=== PATIENT | male | born 1935 | race Caucasian/White ===

== ENCOUNTER 2017-08-24 03:31 | Emergency (ER) | payer MEDICARE ==
[~2017-08-24] VITALS: Ht 180.3 cm; Wt 100.0 kg
[~2017-08-24 03:31] MED LIST: (None)3.5 GM OS; AMBIEN CR6.25 MG PO; ASPIRIN 81 LOW81 MG PO; BENADRYL 50MG C50 MG PO; CARVEDILOL3.125 MG PO; CRESTOR20 MG PO; FLEXERIL PO; GENTAMICIN15 ML/BTL OS; GLUCOTROL XL5 MG PO; LASIX 20 MG TAB20 MG PO; LORTAB 10-325 M1 TAB PO; MEDDOSEPAK PO; PEPCID20 MG PO; TRESIBA FL100 UNIT/M SC
[2017-08-24 03:57] LABS: HEMATOCRIT 42.4 % (39.0-50.0); HEMOGLOBIN 14.2 g/dl (14.0-18.0); IMMATURE GRANULOCYTES 0.2 % (0.0-1.0); MEAN CELL VOLUME 86.4 fL CALC (80.0-100.0); MEAN CORPUSCULAR HGB 28.9 pG CALC (26.0-32.0); MEAN CORPUSCULAR HGB CONC 33.5 g/L CALC (32.0-36.0); NEUT# 9.75 thou/uL (1.82-7.42); RED BLOOD COUNT 4.91 mill/uL (4.70-6.10); RED CELL DISTRI WIDTH 13.4 % (11.5-15.5)
[2017-08-24 04:10] LABS: ALBUMIN 3.9 g/dL (3.2-5.0); BILIRUBIN, TOTAL 1.2 mg/dL (0.0-1.4); CREATININE 1.9 mg/dL (0.7-1.3); POTASSIUM 4.1 mmol/l (3.5-5.1); TOTAL PROTEIN 8.4 g/dL (6.3-8.2)
[2017-08-24] MEDS ORDERED: VICTOZA18 MG/3 ML SC (04:55)
[2017-08-24] MEDS ORDERED: BEVESPI AEROSPH1 AER IN (04:57)
[2017-08-24] MEDS ORDERED: FUROSEMIDE20 MG PO (04:59)
[2017-08-24 06:00] VITALS: BP 99/75
[2017-08-24 06:11] LABS: URINE BILIRUBIN - DIPSTICK NEGATIVE (NEGATIVE); URINE BLOOD DIPSTICK MODERATE (NEGATIVE); URINE COLOR YELLOW; URINE GLUCOSE - DIPSTICK NEGATIVE (NEGATIVE); URINE KETONE NEGATIVE (NEGATIVE); URINE LEUK ESTERASE NEGATIVE (Negative); URINE NITRITE - DIPSTICK NEGATIVE (Negative); URINE PROTEIN - DIPSTICK TRACE mg/dL (NEG-TRACE); URINE SPECIFIC GRAVITY 1.025; URINE UROBILINOGEN - DIPSTICK 0.2 E.U./dL (0.2)
[2017-08-24 06:14] LABS: URINE CLARITY SL CLOUDY
[2017-08-24 06:16] LABS: URINE BACTERIA FEW hpf; URINE MUCUS MODERATE hpf (NONE-FEW); URINE SQUAMOUS EPITHELIAL CELL FEW EPI/hpf (0-FEW)
== END 2017-08-24 06:00 | disposition short-term general hospital (02) ==
LOC: ED 03:31
PROVIDERS: Emergency Medicine
DX: R07.9 Chest pain, unspecified (principal); R74.8 Abnormal levels of other serum enzymes; E11.9 Type 2 diabetes mellitus without complications; I10 Essential (primary) hypertension; E78.00 Pure hypercholesterolemia, unspecified; Z87.891 Personal history of nicotine dependence; R06.02 Shortness of breath

== ENCOUNTER → 2018-02-13 | Outpatient (REF) | payer MEDICARE ==
[~2018-02-13] MED LIST changes: +BACTRIM DS1 TAB PO; +BEVESPI AEROSPH1 AER IN; +CLOPIDOGREL75 MG PO; +DIGOXIN0.125 MG PO; +DITROPAN5 MG/TA1 PO; +FUROSEMIDE20 MG PO; +KEFLEX500 MG PO; +METO50TA52 PO; +METOPROLOL SUCC50 MG PO; +NOVOLOG FL100 UNIT/M PO; +PERCOCET 5/321 COMBO PO; +SPIRONOLACT25 MG PO; +TAMSULOSIN0.4 MG PO; +VICTOZA18 MG/3 ML SC
== END | disposition home or self-care (01) ==
LOC: ULTRASND 16:00
PROVIDERS: ATTEND Nurse Practitioner Family
DX: R60.0 Localized edema (principal)

== ENCOUNTER → 2018-02-17 | Outpatient (REF) | payer MEDICARE ==
[2018-02-17 15:01] LABS: URINE BILIRUBIN - DIPSTICK NEGATIVE (NEGATIVE); URINE BLOOD DIPSTICK LARGE (NEGATIVE); URINE COLOR YELLOW; URINE GLUCOSE - DIPSTICK NEGATIVE (NEGATIVE); URINE KETONE NEGATIVE (NEGATIVE); URINE LEUK ESTERASE TRACE (Negative); URINE NITRITE - DIPSTICK NEGATIVE (Negative); URINE PH 5.5 (4.5-8.0); URINE PROTEIN - DIPSTICK 30 mg/dL (NEG-TRACE); URINE SPECIFIC GRAVITY 1.025; URINE UROBILINOGEN - DIPSTICK 0.2 E.U./dL (0.2)
[2018-02-17 15:03] LABS: URINE CLARITY HAZY
== END | disposition home or self-care (01) ==
LOC: DI 14:15
PROVIDERS: ATTEND Nurse Practitioner
DX: N30.00 Acute cystitis without hematuria (principal); R05 Cough; R09.89 Other specified symptoms and signs involving the circulatory and respiratory systems

== ENCOUNTER 2018-06-05 08:08 | Emergency (ER) | payer MEDICARE ==
[~2018-06-05] VITALS: Ht 177.8 cm; Wt 90.0 kg
[~2018-06-05 08:08] MED LIST changes: +OMEPRAZOLE20 M2 PO
[2018-06-05 08:41] LABS: HEMOGLOBIN 12.1 g/dl (14.0-18.0); IMMATURE GRANULOCYTES 0.4 % (0.0-5.0); MEAN CORPUSCULAR HGB 21.7 pG CALC (26.0-32.0); MEAN CORPUSCULAR HGB CONC 28.9 g/L CALC (32.0-36.0); NEUT# 11.11 thou/uL (1.82-7.42); RED BLOOD COUNT 5.57 mill/uL (4.70-6.10); RED CELL DISTRI WIDTH 18.2 % (11.5-15.5)
[2018-06-05 08:47] LABS: HEMATOCRIT 41.8 % (39.0-50.0)
[2018-06-05 08:54] LABS: ALBUMIN 4.3 g/dL (3.2-5.0); BILIRUBIN, TOTAL 0.8 mg/dL (0.0-1.4); CREATININE 2.1 mg/dL (0.7-1.3); POTASSIUM 4.5 mmol/l (3.5-5.1); TOTAL PROTEIN 8.8 g/dL (6.3-8.2)
[2018-06-05] MEDS ORDERED: TRESIBA FL100 UNIT/M SC (10:01)
[2018-06-05 11:14] LABS: URINE BILIRUBIN - DIPSTICK NEGATIVE (NEGATIVE); URINE BLOOD DIPSTICK SMALL (NEGATIVE); URINE COLOR YELLOW; URINE GLUCOSE - DIPSTICK NEGATIVE (NEGATIVE); URINE KETONE NEGATIVE (NEGATIVE); URINE LEUK ESTERASE NEGATIVE (NEGATIVE); URINE NITRITE - DIPSTICK NEGATIVE (Negative); URINE PH 5.5 (4.5-8.0); URINE PROTEIN - DIPSTICK 100 mg/dL (NEG-TRACE); URINE SPECIFIC GRAVITY 1.025; URINE UROBILINOGEN - DIPSTICK 0.2 E.U./dL (0.2)
[2018-06-05] MEDS ORDERED: PERCOCET 10/31 COMBO PO (11:18)
[2018-06-05] MEDS ORDERED: TAMSULOSIN0.4 MG PO (11:18)
[2018-06-05] MEDS ORDERED: TORADOL PO (11:18)
[2018-06-05 11:34] VITALS: BP 124/75
[2018-06-05 12:53] LABS: URINE MUCUS FEW hpf (NONE-FEW); URINE SQUAMOUS EPITHELIAL CELL FEW EPI/hpf (0-FEW)
== END 2018-06-05 12:10 | disposition home or self-care (01) ==
LOC: ED 08:08
PROVIDERS: Emergency Medicine
DX: N13.2 Hydronephrosis with renal and ureteral calculous obstruction (principal); Z87.442 Personal history of urinary calculi; R11.0 Nausea; R10.9 Unspecified abdominal pain; Z96.0 Presence of urogenital implants

== ENCOUNTER 2019-01-24 10:09 | Emergency (ER) | payer MEDICARE ==
[~2019-01-24] VITALS: Ht 177.8 cm; Wt 86.4 kg
[~2019-01-24 10:09] MED LIST changes: +PERCOCET 10/31 COMBO PO; +TORADOL PO
[2019-01-24] MEDS ORDERED: NOVOLOG FL100 UNIT/M SC (10:19)
[2019-01-24] MEDS ORDERED: PERCOCET 10/31 COMBO PO (11:38)
[2019-01-24 12:13] VITALS: BP 113/67
== END 2019-01-24 12:10 | disposition home or self-care (01) ==
LOC: ED 10:09
DX: S16.1XXA Strain of muscle, fascia and tendon at neck level, initial encounter (principal); M62.838 Other muscle spasm; M47.812 Spondylosis without myelopathy or radiculopathy, cervical region; E11.9 Type 2 diabetes mellitus without complications; I10 Essential (primary) hypertension; F17.210 Nicotine dependence, cigarettes, uncomplicated; X58.XXXA Exposure to other specified factors, initial encounter; Z79.4 Long term (current) use of insulin

== ENCOUNTER 2019-02-06 01:51 | Emergency (ER) | payer MEDICARE ==
[~2019-02-06] VITALS: Ht 177.8 cm; Wt 83.1 kg
[~2019-02-06 01:51] MED LIST changes: +NOVOLOG FL100 UNIT/M SC
[2019-02-06 02:26] LABS: HEMATOCRIT 38.8 % (39.0-50.0); HEMOGLOBIN 12.9 g/dl (14.0-18.0); IMMATURE GRANULOCYTES 0.3 % (0.0-5.0); MEAN CELL VOLUME 86.8 fL CALC (80.0-100.0); MEAN CORPUSCULAR HGB 28.9 pG CALC (26.0-32.0); MEAN CORPUSCULAR HGB CONC 33.2 g/L CALC (32.0-36.0); NEUT# 10.48 thou/uL (1.82-7.42); RED BLOOD COUNT 4.47 mill/uL (4.70-6.10); RED CELL DISTRI WIDTH 14.6 % (11.5-15.5)
[2019-02-06 02:36] LABS: ALBUMIN 3.9 g/dL (3.2-5.0); BILIRUBIN, TOTAL 0.9 mg/dL (0.0-1.4); CREATININE 1.8 mg/dL (0.7-1.3); DIGOXIN 0.6 ng/mL (0.8-2.0); POTASSIUM 4.1 mmol/l (3.5-5.1); TOTAL PROTEIN 8.2 g/dL (6.3-8.2)
[2019-02-06 03:28] LABS: URINE BILIRUBIN - DIPSTICK NEGATIVE (NEGATIVE); URINE BLOOD DIPSTICK MODERATE (NEGATIVE); URINE COLOR YELLOW; URINE GLUCOSE - DIPSTICK NEGATIVE (NEGATIVE); URINE KETONE NEGATIVE (NEGATIVE); URINE LEUK ESTERASE NEGATIVE (NEGATIVE); URINE NITRITE - DIPSTICK NEGATIVE (Negative); URINE PROTEIN - DIPSTICK 30 mg/dL (NEG-TRACE); URINE SPECIFIC GRAVITY 1.025; URINE UROBILINOGEN - DIPSTICK 0.2 E.U./dL (0.2)
[2019-02-06 03:29] LABS: URINE EPITHELIAL CELLS FEW EPI/hpf (0-FEW); URINE MUCUS MODERATE hpf (NONE-FEW)
[2019-02-06 04:08] VITALS: BP 97/59
== END 2019-02-06 04:06 | disposition home or self-care (01) ==
LOC: ED 01:51
PROVIDERS: Family Medicine
DX: R51 Headache (principal); R00.2 Palpitations; E11.9 Type 2 diabetes mellitus without complications; I10 Essential (primary) hypertension; F17.200 Nicotine dependence, unspecified, uncomplicated; Z95.810 Presence of automatic (implantable) cardiac defibrillator; Z79.4 Long term (current) use of insulin
CPT/HCPCS: J1160

== ENCOUNTER 2019-09-15 | Emergency (ER) | payer MEDICARE ==
[~2019-09-15] MED LIST changes: +TIZANIDINE4 MG PO
== END 2019-09-15 16:15 | disposition home or self-care (01) ==
PROC: 0HQ1XZZ Repair Face Skin, External Approach (ICD-10-PCS; principal; 2019-09-15)
DX: S01.81XA Laceration without foreign body of other part of head, initial encounter (principal); E11.9 Type 2 diabetes mellitus without complications; I10 Essential (primary) hypertension; F17.200 Nicotine dependence, unspecified, uncomplicated; W31.1XXA Contact with metalworking machines, initial encounter; Y93.89 Activity, other specified; Y92.009 Unspecified place in unspecified non-institutional (private) residence as the place of occurrence of the external cause; Z79.4 Long term (current) use of insulin

== ENCOUNTER 2019-09-29 16:36 | Emergency (ER) | payer MEDICARE ==
[2019-09-29 17:23] LABS: HEMATOCRIT 43.8 % (39.0-50.0); HEMOGLOBIN 14.4 g/dl (14.0-18.0); IMMATURE GRANULOCYTES 0.4 % (0.0-5.0); MEAN CELL VOLUME 88.3 fL CALC (80.0-100.0); MEAN CORPUSCULAR HGB CONC 32.9 g/dL CAL (32.0-36.0); NEUT# 9.08 thou/uL (1.82-7.42); RED BLOOD COUNT 4.96 mill/uL (4.70-6.10); RED CELL DISTRI WIDTH 13.7 % (11.5-15.5)
[2019-09-29 17:42] LABS: ACT PARTIAL THROMBO TIME 27.4 SECONDS (20.0-32.5); PROTHROMBIN TIME 10.9 SECONDS (9.0-12.5)
[2019-09-29 17:56] VITALS: BP 108/65
== END 2019-09-29 18:13 | disposition home or self-care (01) ==
LOC: ED 16:36
PROVIDERS: Emergency Medicine
DX: S01.81XD Laceration without foreign body of other part of head, subsequent encounter (principal); I10 Essential (primary) hypertension; E11.9 Type 2 diabetes mellitus without complications; F17.200 Nicotine dependence, unspecified, uncomplicated; X58.XXXD Exposure to other specified factors, subsequent encounter; Z79.4 Long term (current) use of insulin

== ENCOUNTER 2020-05-30 07:06 | Day surgery (SDC) | payer MEDICARE ==
[~2020-05-30 07:06] MED LIST changes: +TYLENOL 8 HOUR650 MG PO
[2020-05-30 10:48] VITALS: BP 109/68
[2020-05-31] MEDS ORDERED: PERCOCET 5/325M1 TAB PO (12:38)
[2020-05-31] MEDS ORDERED: LORTAB 7.57.5 MG PO (13:41)
== END 2020-05-30 10:24 | disposition home or self-care (01) ==
LOC: ORM 07:06
PROVIDERS: ATTEND Surgery
PROC: 0JH63WZ Insertion of Totally Implantable Vascular Access Device into Chest Subcutaneous Tissue and Fascia, Percutaneous Approach (ICD-10-PCS; principal; 2020-05-30)
PROC: 02HV33Z Insertion of Infusion Device into Superior Vena Cava, Percutaneous Approach (ICD-10-PCS; 2020-05-30)
PROC: B518ZZA Fluoroscopy of Superior Vena Cava, Guidance (ICD-10-PCS; 2020-05-30)
DX: C18.9 Malignant neoplasm of colon, unspecified (principal); I25.10 Atherosclerotic heart disease of native coronary artery without angina pectoris; F17.200 Nicotine dependence, unspecified, uncomplicated; Z95.810 Presence of automatic (implantable) cardiac defibrillator; Z90.49 Acquired absence of other specified parts of digestive tract; Z86.010 Personal history of colon polyps; Z20.822 Contact with and (suspected) exposure to COVID-19

== ENCOUNTER 2020-05-31 12:19 | Emergency (ER) | payer MEDICARE ==
[~2020-05-31] VITALS: Ht 177.8 cm; Wt 84.0 kg
[2020-05-31] MEDS ORDERED: PERCOCET 5/325M1 TAB PO (12:38)
[2020-05-31] MEDS ORDERED: LORTAB 7.57.5 MG PO (13:41)
[2020-05-31 13:49] VITALS: BP 114/78
== END 2020-05-31 13:57 | disposition home or self-care (01) ==
LOC: ED 12:19
DX: G89.18 Other acute postprocedural pain (principal); C18.9 Malignant neoplasm of colon, unspecified; I10 Essential (primary) hypertension; E11.9 Type 2 diabetes mellitus without complications; F17.210 Nicotine dependence, cigarettes, uncomplicated; Z95.810 Presence of automatic (implantable) cardiac defibrillator; Z79.4 Long term (current) use of insulin; Z95.828 Presence of other vascular implants and grafts

== ENCOUNTER 2021-02-17 14:41 | Emergency (ER) | payer MEDICARE ==
[~2021-02-17 14:41] MED LIST changes: +LORTAB 7.57.5 MG PO; +PERCOCET 5/325M1 TAB PO
[2021-02-18] MEDS ORDERED: LASIX 40 MG TAB40 MG PO (19:37)
[2021-02-18] MEDS ORDERED: LEVAQUIN750 M1 PO (19:38)
== END 2021-02-17 15:52 | disposition left against medical advice (07) ==
LOC: ED 14:41 → LWOBS 15:52
DX: Z53.21 Procedure and treatment not carried out due to patient leaving prior to being seen by health care provider (principal)

== ENCOUNTER 2021-02-18 15:25 | Emergency (ER) | payer MEDICARE ==
[~2021-02-18] VITALS: Ht 177.8 cm; Wt 125.0 kg
[2021-02-18 16:42] LABS: HEMATOCRIT 43.1 % (39.0-50.0); HEMOGLOBIN 13.1 g/dl (14.0-18.0); IMMATURE GRANULOCYTES 0.2 % (0.0-5.0); MEAN CELL VOLUME 93.7 fL CALC (80.0-100.0); MEAN CORPUSCULAR HGB 28.5 pG CALC (26.0-32.0); MEAN CORPUSCULAR HGB CONC 30.4 g/dL CAL (32.0-36.0); NEUT# 5.31 thou/uL (1.82-7.42); RED BLOOD COUNT 4.6 mill/uL (4.70-6.10); RED CELL DISTRI WIDTH 17.8 % (11.5-15.5)
[2021-02-18 17:03] LABS: BILIRUBIN, TOTAL 1.1 mg/dL (0.0-1.4); CREATININE 2.1 mg/dL (0.7-1.3)
[2021-02-18 17:04] LABS: ALBUMIN 3.2 g/dL (3.2-5.0); POTASSIUM 3.3 mmol/l (3.5-5.1)
[2021-02-18] MEDS ORDERED: LASIX 40 MG TAB40 MG PO (19:37)
[2021-02-18] MEDS ORDERED: LEVAQUIN750 M1 PO (19:38)
[2021-02-18 20:03] VITALS: BP 91/56
== END 2021-02-18 19:55 | disposition left against medical advice (07) ==
LOC: ED 15:25 → ED-I 18:06 → ED 19:55
PROVIDERS: Family Medicine
DX: E11.622 Type 2 diabetes mellitus with other skin ulcer (principal); L97.829 Non-pressure chronic ulcer of other part of left lower leg with unspecified severity; L03.116 Cellulitis of left lower limb; J18.9 Pneumonia, unspecified organism; I11.0 Hypertensive heart disease with heart failure; I50.9 Heart failure, unspecified; F17.210 Nicotine dependence, cigarettes, uncomplicated; Z91.19 Patient's noncompliance with other medical treatment and regimen; Z85.038 Personal history of other malignant neoplasm of large intestine; Z95.1 Presence of aortocoronary bypass graft; Z95.810 Presence of automatic (implantable) cardiac defibrillator; Z79.4 Long term (current) use of insulin; Z20.822 Contact with and (suspected) exposure to COVID-19

== ENCOUNTER 2021-02-21 13:25 | Observation (INO) | payer MEDICARE ==
[~2021-02-21] VITALS: Ht 177.8 cm; Wt 86.4 kg
[~2021-02-21 13:25] MED LIST changes: +LASIX 40 MG TAB40 MG PO; +LEVAQUIN750 M1 PO
[2021-02-21 14:36] LABS: HEMOGLOBIN 12.8 g/dl (14.0-18.0); IMMATURE GRANULOCYTES 0.6 % (0.0-5.0); MEAN CELL VOLUME 94.9 fL CALC (80.0-100.0); MEAN CORPUSCULAR HGB 28.3 pG CALC (26.0-32.0); MEAN CORPUSCULAR HGB CONC 29.8 g/dL CAL (32.0-36.0); NEUT# 5.57 thou/uL (1.82-7.42); RED BLOOD COUNT 4.53 mill/uL (4.70-6.10); RED CELL DISTRI WIDTH 17.7 % (11.5-15.5)
[2021-02-21 14:56] LABS: ALBUMIN 3.2 g/dL (3.2-5.0); BILIRUBIN, TOTAL 1.3 mg/dL (0.0-1.4); CREATININE 1.9 mg/dL (0.7-1.3); POTASSIUM 3.8 mmol/l (3.5-5.1); TOTAL PROTEIN 7.3 g/dL (6.3-8.2)
[2021-02-21 15:37] LABS: URINE BILIRUBIN - DIPSTICK NEGATIVE (NEGATIVE); URINE BLOOD DIPSTICK SMALL (NEGATIVE); URINE COLOR YELLOW; URINE GLUCOSE - DIPSTICK NEGATIVE (NEGATIVE); URINE KETONE NEGATIVE (NEGATIVE); URINE LEUK ESTERASE NEGATIVE (NEGATIVE); URINE PROTEIN - DIPSTICK TRACE mg/dL (NEG-TRACE); URINE SPECIFIC GRAVITY 1.025; URINE UROBILINOGEN - DIPSTICK 0.2 E.U./dL (0.2)
[2021-02-21 15:39] LABS: URINE NITRITE - DIPSTICK NEGATIVE (Negative)
[2021-02-21 15:50] LABS: URINE WBC 0-2 WBC/hpf (0-5)
[2021-02-21 19:00] VITALS: BP 95/62
[2021-02-22] VITALS: BP 91/57
[2021-02-22 04:00] VITALS: BP 93/55
[2021-02-22 05:18] LABS: HEMATOCRIT 41.9 % (39.0-50.0); HEMOGLOBIN 12.8 g/dl (14.0-18.0); MEAN CELL VOLUME 94.2 fL CALC (80.0-100.0); MEAN CORPUSCULAR HGB 28.8 pG CALC (26.0-32.0); MEAN CORPUSCULAR HGB CONC 30.5 g/dL CAL (32.0-36.0); RED BLOOD COUNT 4.45 mill/uL (4.70-6.10); RED CELL DISTRI WIDTH 17.8 % (11.5-15.5)
[2021-02-22 05:32] LABS: CREATININE 2.1 mg/dL (0.7-1.3); MAGNESIUM 2.4 mg/dL (1.6-2.3)
[2021-02-22 08:00] VITALS: BP 104/66
[2021-02-22 12:18] LABS: TOTAL PROTEIN 6.5 g/dL (6.3-8.2)
[2021-02-22 12:24] VITALS: BP 97/66
[2021-02-22 16:06] VITALS: BP 96/64
[2021-02-22 18:57] VITALS: BP 95/59
[2021-02-23] VITALS: BP 96/71
[2021-02-23 04:00] VITALS: BP 95/65
[2021-02-23 05:32] LABS: HEMATOCRIT 42.4 % (39.0-50.0); MEAN CELL VOLUME 93.2 fL CALC (80.0-100.0); MEAN CORPUSCULAR HGB 28.6 pG CALC (26.0-32.0); MEAN CORPUSCULAR HGB CONC 30.7 g/dL CAL (32.0-36.0); RED BLOOD COUNT 4.55 mill/uL (4.70-6.10)
[2021-02-23 05:38] LABS: CREATININE 1.9 mg/dL (0.7-1.3); MAGNESIUM 2.3 mg/dL (1.6-2.3); POTASSIUM 3.9 mmol/l (3.5-5.1)
[2021-02-23 07:30] VITALS: BP 96/69
== END 2021-02-23 13:50 | disposition home health service (06) ==
LOC: ED 13:25 → ED-I 15:06 → ED 15:06 → ED-I 15:14 → ED 15:31 → MS2 15:31
PROVIDERS: Emergency Medicine; Nurse Practitioner; ADMIT Hospitalist; ATTEND Hospitalist
PROC: 0W9B3ZZ Drainage of Left Pleural Cavity, Percutaneous Approach (ICD-10-PCS; principal; 2021-02-22)
PROC: BB4BZZZ Ultrasonography of Pleura (ICD-10-PCS; 2021-02-22)
DX: J18.9 Pneumonia, unspecified organism (principal); J91.8 Pleural effusion in other conditions classified elsewhere; J44.0 Chronic obstructive pulmonary disease with (acute) lower respiratory infection; I13.0 Hypertensive heart and chronic kidney disease with heart failure and stage 1 through stage 4 chronic kidney disease, or unspecified chronic kidney disease; I50.9 Heart failure, unspecified; E11.22 Type 2 diabetes mellitus with diabetic chronic kidney disease; N18.4 Chronic kidney disease, stage 4 (severe); E11.622 Type 2 diabetes mellitus with other skin ulcer; L97.929 Non-pressure chronic ulcer of unspecified part of left lower leg with unspecified severity; I25.10 Atherosclerotic heart disease of native coronary artery without angina pectoris; E78.5 Hyperlipidemia, unspecified; F17.210 Nicotine dependence, cigarettes, uncomplicated; Z79.4 Long term (current) use of insulin; Z85.038 Personal history of other malignant neoplasm of large intestine; Z95.5 Presence of coronary angioplasty implant and graft; Z95.1 Presence of aortocoronary bypass graft; Z95.810 Presence of automatic (implantable) cardiac defibrillator; Z20.822 Contact with and (suspected) exposure to COVID-19

== ENCOUNTER 2021-06-06 16:31 | Emergency (ER) | payer MEDICARE ==
[~2021-06-06] VITALS: Ht 177.8 cm; Wt 75.0 kg
[2021-06-06 18:34] VITALS: BP 132/71
== END 2021-06-06 18:27 | disposition left against medical advice (07) ==
LOC: ED 16:31 → LWOBS 18:25
DX: Z53.21 Procedure and treatment not carried out due to patient leaving prior to being seen by health care provider (principal)

== ENCOUNTER 2021-06-15 14:08 | Emergency (ER) | payer MEDICARE ==
[~2021-06-15] VITALS: Ht 177.8 cm; Wt 84.0 kg
[2021-06-15 15:12] LABS: URINE BILIRUBIN - DIPSTICK NEGATIVE (NEGATIVE); URINE BLOOD DIPSTICK LARGE (NEGATIVE); URINE COLOR YELLOW; URINE GLUCOSE - DIPSTICK NEGATIVE (NEGATIVE); URINE KETONE NEGATIVE (NEGATIVE); URINE PH 5.5 (4.5-8.0); URINE PROTEIN - DIPSTICK 30 mg/dL (NEG-TRACE); URINE UROBILINOGEN - DIPSTICK 0.2 E.U./dL (0.2)
[2021-06-15 15:15] LABS: URINE LEUK ESTERASE SMALL (NEGATIVE); URINE NITRITE - DIPSTICK POSITIVE (Negative)
[2021-06-15 15:17] LABS: URINE BACTERIA MANY hpf; URINE SQUAMOUS EPITHELIAL CELL FEW EPI/hpf (0-FEW); URINE WBC 20-50 WBC/hpf (0-5)
[2021-06-15 18:50] VITALS: BP 116/66
== END 2021-06-15 19:04 | disposition home or self-care (01) ==
LOC: ED 14:08
PROVIDERS: Family Medicine
PROC: 0T9B70Z Drainage of Bladder with Drainage Device, Via Natural or Artificial Opening (ICD-10-PCS; principal; 2021-06-15)
DX: N39.0 Urinary tract infection, site not specified (principal); B96.20 Unspecified Escherichia coli [E. coli] as the cause of diseases classified elsewhere; I10 Essential (primary) hypertension; E11.9 Type 2 diabetes mellitus without complications; F17.200 Nicotine dependence, unspecified, uncomplicated; Z95.1 Presence of aortocoronary bypass graft; Z95.0 Presence of cardiac pacemaker; Z85.038 Personal history of other malignant neoplasm of large intestine; Z79.4 Long term (current) use of insulin

== ENCOUNTER 2021-08-07 00:49 | Observation (INO) | payer MEDICARE ==
[2021-08-07] VITALS (14 sets, daily range): BP systolic 68–109; BP diastolic 39–63
[~2021-08-07] VITALS: Ht 177.8 cm; Wt 72.0 kg
[~2021-08-07 00:49] MED LIST changes: +TRESIBA FL200 UNIT/M SC
[2021-08-07 01:23] LABS: HEMOGLOBIN 11.5 g/dl (14.0-18.0); IMMATURE GRANULOCYTES 0.6 % (0.0-5.0); MEAN CELL VOLUME 95.1 fL CALC (80.0-100.0); MEAN CORPUSCULAR HGB 26.7 pG CALC (26.0-32.0); NEUT# 12.27 thou/uL (1.82-7.42); RED BLOOD COUNT 4.31 mill/uL (4.70-6.10)
[2021-08-07] MEDS ORDERED: DIGITEK0.25 M1 PO (01:31)
[2021-08-07 01:49] LABS: ACT PARTIAL THROMBO TIME 31.6 SECONDS (20.0-32.5); PROTHROMBIN TIME 13.8 SECONDS (9.0-12.5)
[2021-08-07 02:01] LABS: INTERNATIONAL NORMALIZED RATIO 1.3 RATIO (0.7-1.3)
[2021-08-07 02:27] LABS: ALBUMIN 2.9 g/dL (3.2-5.0); BILIRUBIN, TOTAL 1.5 mg/dL (0.0-1.4); BUN 71 mg/dL (8-23); BUN/CREATININE RATIO 26 (12-20 (CALC)); CARBON DIOXIDE 15 mmol/l (22-30); CHLORIDE 114 mmol/l (95-108); CREATININE 2.8 mg/dL (0.7-1.3); GFR 22 ML/MIN (>=60 (CALC)); GFR FOR AFR.AMER. 26 ML/MIN (>=60 (CALC)); MAGNESIUM 2.7 mg/dL (1.6-2.3); SGOT/AST 25 u/l (19-48); SODIUM 139 mmol/l (137-146); TOTAL PROTEIN 7.5 g/dL (6.3-8.2)
[2021-08-07 02:28] LABS: ALKALINE PHOSPHATASE 485 u/l (38-126); ANION GAP 16 (6-22 (CALC)); CPK < 20 u/l (52-200); DIGOXIN 1.4 ng/mL (0.8-2.0); POTASSIUM 5.6 mmol/l (3.5-5.1)
[2021-08-07 02:30] LABS: MYOGLOBIN 83 ng/mL (0 - 121); TSH, 3RD GENERATION 2.67 uIU/mL (0.47 - 4.68)
[2021-08-07 02:58] LABS: URINE BILIRUBIN - DIPSTICK NEGATIVE (NEGATIVE); URINE BLOOD DIPSTICK LARGE (NEGATIVE); URINE COLOR YELLOW; URINE GLUCOSE - DIPSTICK NEGATIVE (NEGATIVE); URINE KETONE NEGATIVE (NEGATIVE); URINE PH 5.5 (4.5-8.0); URINE PROTEIN - DIPSTICK 30 mg/dL (NEG-TRACE); URINE UROBILINOGEN - DIPSTICK 0.2 E.U./dL (0.2)
[2021-08-07 03:01] LABS: URINE LEUK ESTERASE LARGE (NEGATIVE); URINE NITRITE - DIPSTICK POSITIVE (Negative)
[2021-08-07 03:04] LABS: URINE BACTERIA MANY hpf; URINE SQUAMOUS EPITHELIAL CELL FEW EPI/hpf (0-FEW); URINE WBC 50-100 WBC/hpf (0-5)
[2021-08-08 03:58] VITALS: BP 78/46
[2021-08-08 03:59] VITALS: BP 83/47
[2021-08-08 05:35] LABS: HEMOGLOBIN 10.3 g/dl (14.0-18.0); MEAN CELL VOLUME 92.3 fL CALC (80.0-100.0); MEAN CORPUSCULAR HGB 27.2 pG CALC (26.0-32.0); MEAN CORPUSCULAR HGB CONC 29.4 g/dL CAL (32.0-36.0); RED BLOOD COUNT 3.79 mill/uL (4.70-6.10); RED CELL DISTRI WIDTH 18.8 % (11.5-15.5)
[2021-08-08 05:55] LABS: CREATININE 2.8 mg/dL (0.7-1.3); MAGNESIUM 2.6 mg/dL (1.6-2.3); POTASSIUM 4.9 mmol/l (3.5-5.1)
[2021-08-08] MEDS ORDERED: OMNICEF300 MG PO (14:46)
[2021-08-08 14:56] VITALS: BP 93/50
== END 2021-08-08 17:36 | disposition hospice, home (50) ==
LOC: ED 00:49 → ED-I 02:30 → ED 02:51 → MS2 02:52
PROVIDERS: Family Medicine; Hospitalist; ADMIT Internal Medicine; ATTEND Internal Medicine
PROC: 0W9B3ZZ Drainage of Left Pleural Cavity, Percutaneous Approach (ICD-10-PCS; principal; 2021-08-07)
PROC: BB4BZZZ Ultrasonography of Pleura (ICD-10-PCS; 2021-08-07)
DX: R53.1 Weakness (principal); R53.83 Other fatigue; I13.10 Hypertensive heart and chronic kidney disease without heart failure, with stage 1 through stage 4 chronic kidney disease, or unspecified chronic kidney disease; E11.22 Type 2 diabetes mellitus with diabetic chronic kidney disease; I50.9 Heart failure, unspecified; N18.4 Chronic kidney disease, stage 4 (severe); N39.0 Urinary tract infection, site not specified; J96.11 Chronic respiratory failure with hypoxia; J91.8 Pleural effusion in other conditions classified elsewhere; E78.5 Hyperlipidemia, unspecified; I25.10 Atherosclerotic heart disease of native coronary artery without angina pectoris; L97.929 Non-pressure chronic ulcer of unspecified part of left lower leg with unspecified severity; L97.919 Non-pressure chronic ulcer of unspecified part of right lower leg with unspecified severity; T24.002S Burn of unspecified degree of unspecified site of left lower limb, except ankle and foot, sequela; T24.001S Burn of unspecified degree of unspecified site of right lower limb, except ankle and foot, sequela; F17.200 Nicotine dependence, unspecified, uncomplicated; B96.20 Unspecified Escherichia coli [E. coli] as the cause of diseases classified elsewhere; X08.8XXS Exposure to other specified smoke, fire and flames, sequela; Z51.5 Encounter for palliative care; Z66 Do not resuscitate; Z95.1 Presence of aortocoronary bypass graft; Z95.810 Presence of automatic (implantable) cardiac defibrillator; Z74.01 Bed confinement status; Z99.81 Dependence on supplemental oxygen; Z95.5 Presence of coronary angioplasty implant and graft; Z79.4 Long term (current) use of insulin; Z20.822 Contact with and (suspected) exposure to COVID-19